=== PATIENT | male | born 1980 | race Caucasian/White ===

== ENCOUNTER → 2016-06-13 | Outpatient (CLI) | payer OTHER ==
--- NOTE | 2016-06-13 15:32 | DI ---
Indication: [email or web address]: DX TESTING PROCEDURE: LUMBAR SPINE 3 VIEWS: Encounter: Initial Comparison: None Findings: Bilateral L5 spondylolysis with grade 1 spondylolisthesis of L5 on S1. The vertebral body heights are maintained. No acute fracture or subluxation. Mild disk space narrowing at L5-S1. The remaining disk spaces are normal. Impression: Bilateral L5 spondylolysis with spondylolisthesis. .
--- NOTE | 2016-06-13 15:32 | DI ---
Indication: [email or web address]: DX TESTING PROCEDURE: FOOT LEFT 3 VIEWS: Encounter: Initial Comparison: None Findings: There is no acute fracture, dislocation or malalignment identified. Impression: No acute osseous abnormality. .
--- NOTE | 2016-06-13 15:33 | DI ---
Indication: [email or web address]: DX TESTING PROCEDURE: SHOULDER RIGHT 2-3 VIEWS: Encounter: Initial Comparison: None Findings: There is no acute fracture, dislocation or malalignment identified. Joint spaces are maintained. Impression: No acute osseous abnormality. .
--- NOTE | 2016-06-13 15:35 | DI ---
Indication: [email or web address]: DX TESTING PROCEDURE: FOOT RIGHT 3 VIEWS: Encounter: Initial Comparison: None Findings: There is a subacute appearing nondisplaced Simpson fracture of the fifth metatarsal. No additional fracture or dislocation seen. There is some early periostitis consistent with early healing response. Impression: Subacute Simpson fracture. Recommend orthopedic evaluation as these fractures have a high risk for poor healing and nonunion. .
--- NOTE | 2016-06-13 15:36 | DI ---
Indication: [email or web address]: DX TESTING PROCEDURE: ELBOW RIGHT 2 VIEW: Encounter: Initial Comparison: None Findings: There is no acute fracture, dislocation or malalignment identified. Impression: No acute osseous abnormality. .
== END ==
LOC: IMA 14:14
DX: Z02.89 Encounter for other administrative examinations (principal)